=== PATIENT | male | born 1950 | race Two or more races ===

== ENCOUNTER 2017-03-12 12:29 | Emergency (ER) | payer OTHER ==
[2017-03-12 12:38] VITALS: TEMP 97.9
--- NOTE | 2017-03-12 13:51 | EDPHY ---
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 At 10:30 received the allergy shots. Within 30 min he started to experience wheezing and shortness of breath and rash where the pollen was injected. He noted that the area where the pollen was injected on his right triceps was inflamed. No history of lung disease. He notified the nurse and the doctor examined him. He was given epinephrine and prednisone. Within 15 min he started to feel better. He is advised to go to the emergency room for further evaluation. Upon my examination, patient reports complete resolution of symptoms. Modifying Factors: See above Comment: ROS: see HPI Constitutional: No fever, no chills, no weight loss Eyes: No blurred vision Respiratory: + shortness of breath, no cough Cardiovascular: No chest pain Gastrointestinal: No nausea, no vomiting, no diarrhea Genitourinary: No dysuria Extremities: No myalgias Neurologic: No weakness, no numbness Skin: + rashes Hematologic: No bruising, no bleeding MEDICAL/SURGICAL/SOCIAL HISTORY: Medical history: Generally healthy. Does not take any regular medications. Surgical history: Denies Social history: Retired. CONSTITUTIONAL: awake and alert, no obvious distress HEENT: Atraumatic and normocephalic, PERRL, EOMI. Tympanic membranes clear. Oropharynx clear, no postpharyngeal edema, uvula midline, no exudate and moist pink mucosa. Airway patent. No lymphadenopathy. No meningismus. Cardiovascular: Normal S1/S2, regular rate, regular rhythm, without murmur rub or gallop. PULMONARY/CHEST: Symmetrical and nontender. Clear to auscultation bilaterally. Good air movement. No accessory muscle usage. ABDOMEN: Soft, nondistended, nontender, no rebound, no guarding, no peritoneal signs, no masses or organomegaly. No CVAT. EXTREMITIES: 2/2 pulses, strength 5/5, left arm shows raise injury draped area where pollen injection was performed. No fluctuance. no deformities, no clubbing, no cyanosis or edema. NEUROLOGICAL: no focal neuro deficits. GCS 15. SKIN: Warm and dry, no erythema. no rash. Good capillary refill. Source: Patient Exam Limitations: No limitations - Personal History Current Tetanus/Diphtheria Vaccine: Yes - Medical/Surgical History Hx Asthma: No Hx Chronic Respiratory Disease: No Hx Diabetes: No Hx Cardiac Disease: No Hx Renal Disease: No Hx Cirrhosis: No Hx Alcoholism: No Hx HIV/AIDS: No Hx Splenectomy or Spleen Trauma: No Other PMH: denies - Social History Smoking Status: Never smoked Constitutional: Initial Vital Signs Temperature (C) 36.6 C 03/12/17 12:35 Heart Rate 72 03/12/17 12:35 Respiratory Rate 16 03/12/17 12:35 Blood Pressure 135/82 H 03/12/17 12:35 O2 Sat (%) 95 03/12/17 12:35 O2 Delivery Mode Room Air Allergies/Adverse Reactions: No Known Allergies Allergy (Unverified 03/12/17 12:34) Home Medications: Medication Instructions Recorded EPINEPHRINE 03/12/17 EPINEPHRINE [EPIPEN] 0.3 mg IM ONCE #2 syr 03/12/17 Famotidine [Pepcid 20 MG (*)] 20 mg PO BID #6 tab 03/12/17 Prednisone 03/12/17 Medical Decision Making ED Course/Re-evaluation: Vital signs reviewed upon arrival. No signs of anaphylaxis/airway compromise/respiratory distress This patient was seen under the supervision of my primary supervising physician. I evaluated care for this patient independently. Differential Diagnosis: Differential diagnosis includes but is not limited to allergic reaction, anaphylaxis, respiratory distress, airway compromise.. Departure - Departure Disposition: Home, Routine, Self-Care Clinical Impression: Pollen allergy Condition: Good Instructions: Anaphylaxis (ED) Additional Instructions: Take Pepcid twice a day x3 days. Use Benadryl 25-50 mg every 6 hr as needed for allergic reaction. Referrals: Grace Sneed MD [Primary Care Provider] - As per Instructions Prescriptions: EPINEPHRINE [EPIPEN] 0.3 mg IM ONCE #2 syr Famotidine [Pepcid 20 MG (*)] 20 mg PO BID #6 tab
[2017-03-12 14:06] VITALS: BP 129/100; PULSE 80; RESP 18; O2SAT 94
== END 2017-03-12 14:05 | disposition home or self-care (01) ==
DX: J30.1 Allergic rhinitis due to pollen (principal)